=== PATIENT | male | born 1985 | race Caucasian/White ===

== ENCOUNTER 2019-11-30 07:59 | Outpatient (CLI) | payer BC, SELFPAY ==
--- NOTE | 2019-12-06 08:31 | SLEEP_ITS ---
DATE OF STUDY: 11/30/2019 STUDY: Home sleep study. ORDERING PROVIDER: KRISTY Laws. REASON FOR THE STUDY: Hypersomnia. HISTORY: This patient is a 34-year-old male, 6 feet 2 inches tall, weighing 225 pounds with the body mass index of 28.9. The patient has complaints of not feeling refreshed in the morning, waking up 4 to 5 times every night. This has been going on for several years. There is no family history of sleep apnea. The patient wakes up early during the night, later during the night, and has excessive sleepiness. He snores occasionally, and occasionally, it is loud enough that others complain about it. He frequently has trouble sleeping with the cold. He rarely gasps for breath at night. He does not have breathing problems at night witnessed by others. He does not sweat excessively at night. He rarely notices his heart pounding or beating irregularly at night. He rarely falls asleep during the day. He does not fall asleep involuntarily or while driving. He occasionally has daytime difficulties due to excessive sleepiness. He does not have feelings of paralysis on waking or falling asleep. He rarely has vivid dreamlike scenes upon awakening or falling asleep. He is never afraid to go to sleep and does not have nightmares. He rarely has racing thoughts, rarely remembers his dreams. He does not feel sad, depressed, or anxious. He frequently has muscular tension. He occasionally notices parts of his body jerking. He does not kick at night. He occasionally has crawly achy feelings in the legs. He rarely has leg pain at night. He denies morning jaw pain and denies grinding his teeth during the sleep. He is rarely bothered by pain during the day. He occasionally is awakened by pain at night. He frequently wakes up feeling stiff in the morning with sore achy muscles. He occasionally wakes up with pain in the spine and neck. He has fatigue, memory problems, and headaches. Normal bedtime is between 9 and 10 p.m., taking 30 minutes to fall asleep, typically waking 4 to 5 times at night, staying awake for 10 to 15 minutes. During that time, he will lie in the bed and wait to fall asleep again. He wakes up at 4:15 am. Weekend schedule is similar, waking up at 5 in the morning. He estimates 5 to 6 hours of sleep each night. He does not take naps. A short nap is not refreshing. He is usually drowsy in the morning for 2 hours or longer. He feels better in the morning than at other times a day. MEDICAL COMORBIDITIES: Seasonal allergies. Knee surgery bilaterally. Hypertension, diastolic blood pressure of 89. MEDICATIONS: Not listed. HABITS: Never smoked tobacco. Caffeine, 1 to 2 cups of coffee a day. Two alcoholic beverages per week. No recreational drugs. DESCRIPTION OF THE STUDY: On the [place] Sleepiness Scale, the score was 8. This was conducted as an unattended type 3 portable home sleep test using the 4-channel monitoring, including respiratory effort channel, snoring channel, oxygen saturation channel, and heart rate channel. The study was scored using the [facility] guidelines. Duration of the study was 7 hours 50 minutes. The apnea-hypopnea index was 1.5. The oxygen desaturation index was 0.8. The patient had 8 apneas. Half of these apneas were obstructive and half were central. He had 4 hypopneas. He had 568 snoring events and desaturated 6 times. No time was spent below 88%. The minimum saturation was 80%. Heart rate ranged from 41 to 91. IMPRESSION: 1. The apnea-hypopnea index does not support the diagnosis of sleep-disordered breathing. Home sleep tests typically underestimate the degree of sleep-disordered breathing. The patient did have a few spikes in the heart rate and dips in saturation that suggested obstructive events; however, on a h
== END 2019-11-30 08:00 | disposition home or self-care (01) ==
LOC: ANHCSM 07:59
PROVIDERS: Visit Provider Physician Assistant
DX: G47.10 Hypersomnia, unspecified (principal)
CPT/HCPCS: 95806